=== PATIENT | male | born 1950 | race Caucasian/White ===

== ENCOUNTER 2017-09-14 21:14 | Emergency (ER) | payer SELFPAY ==
[~2017-09-14 21:14] MED LIST: DICLOFENAC; DILT240C70 PO; PRADAXA; SAME MEDS
== END 2017-09-14 21:21 | disposition left against medical advice (07) ==
LOC: E/R 21:14
DX: Z53.21 Procedure and treatment not carried out due to patient leaving prior to being seen by health care provider (principal)